=== PATIENT | male | born 1950 | race Caucasian/White ===

== ENCOUNTER 2023-03-29 09:47 | Outpatient (OUT) | payer MEDICARE, SELFPAY ==
--- NOTE | 2023-03-29 09:58 | ECG_ITS ---
[facility] Test Date: 2023-03-29 Pat Name: LALY HENSLEY Department: Room: - Gender: Male It Project Coordinator: : 1950 Requested By: [id number] Order Number: [id number] Reading MD: JANA MENSAH Measurements Intervals [place] Rate: 55 P: 24 NH: 245 QRS: 99 QRSD: 153 T: 20 QT: 419 QTc: 402 Interpretive Statements SINUS BRADYCARDIA WITH FIRST DEGREE AV BLOCK RIGHT BUNDLE BRANCH BLOCK [120+ ms QRS DURATION, UPRIGHT V1, 40+ ms S IN I/aVL/V4/V5/V6] No previous ECG available for comparison Electronically Signed On 03-30-2023 6:50:08 EDT by JANA MENSAH
--- NOTE | 2023-03-29 09:58 | XR_ITS ---
The [address] [address] Patient Name: LALY HENSLEY MRN: [id number] date: 1950 Sex: M Assigned Patient Location: [facility] Current Patient Location: [facility] Accession/Order Number: [id number] Exam Date: 03/29/2023 11:00 Report Date: 03/29/2023 11:27 At the request of: BJ YADAV Procedure: XR chest 2V EXAM: XR chest 2V HISTORY: Preop exam COMPARISON: None. TECHNIQUE: PA and lateral views of the chest. FINDINGS: The cardiomediastinal silhouette is normal. No focal consolidation is identified. There is no pneumothorax. No pleural effusion is noted. The osseous structures are intact. XR/XR chest 2V IMPRESSION: No acute cardiopulmonary process. Electronically authenticated by: OTF RUBIN Date: 03/29/2023 11:27
[2023-03-29 10:48] LABS: Basophils Absolute Auto 0.1 10^3/uL (0.0-0.1); Basophils Percent Auto 0.8 % (0.2-2.0); Eosinophils Absolute Auto 0.4 10^3/uL (0.0-0.7); Eosinophils Percent Auto 5.4 % (0.9-7.0); Hematocrit 45.4 % (42.0-54.0); Hemoglobin 15.2 g/dL (14.0-18.0); Immature Granulocytes Abs Auto 0.02 10^3/uL (0.00-0.03); Immature Granulocytes Pct Auto 0.3 % (0.0-0.5); Lymphocytes Absolute Auto 1.9 10^3/uL (1.2-3.8); Lymphocytes Percent Auto 24.1 % (20.5-60.0); Mean Corpuscular HGB Conc 33.5 g/dL (29.9-35.2); Mean Corpuscular Hemoglobin 29.7 pg (25.9-34.0); Mean Corpuscular Volume 88.8 fL (80.0-94.0); Mean Platelet Volume 9.8 fL (9.5-13.5); Monocytes Absolute Auto 0.5 10^3/uL (0.3-0.8); Monocytes Percent Auto 6.5 % (1.7-12.0); Neutrophils Absolute Auto 4.9 10^3/uL (1.4-6.5); Neutrophils Percent Auto 62.9 % (43.0-75.0); Platelet Count 225 10^3/uL (150-450); Red Blood Count 5.11 10^6/uL (4.70-6.10); Red Cell Distribution Width 12.9 % (11.0-15.0); White Blood Count 7.8 10^3/uL (4.0-11.0)
[2023-03-29 10:57] LABS: Anion Gap 10.9; BUN Creatinine Ratio 14.9; Calcium 9.6 mg/dL (8.5-10.1); Carbon Dioxide 27.5 mmol/L (21.0-32.0); Chloride 103 mmol/L (98-107); Estimated GFR (African America >60 (>=60); Estimated GFR (Non-African Ame >60 (>=60); Glucose 207 mg/dL (74-106); Potassium 4.4 mmol/L (3.5-5.1); Sodium 137 mmol/L (136-145)
[2023-03-29 11:08] LABS: INR 1.04; Partial Thromboplastin Time 27.3 sec (22.3-36.2)
== END 2023-03-29 09:48 | disposition home or self-care (01) ==
LOC: PST 09:51
PROVIDERS: PCP Family Medicine; Visit Provider Urology
DX: Z01.810 Encounter for preprocedural cardiovascular examination (principal); Z01.812 Encounter for preprocedural laboratory examination; R97.20 Elevated prostate specific antigen [PSA]; I25.10 Atherosclerotic heart disease of native coronary artery without angina pectoris; E11.9 Type 2 diabetes mellitus without complications; I10 Essential (primary) hypertension
CPT/HCPCS: 36415; 71046; 80048; 85025; 85610; 85730; 93005; G0463

== ENCOUNTER 2023-04-07 11:49 | Day surgery (SDC) | payer MEDICARE, SELFPAY ==
[2023-03-29 10:37] VITALS: BP 132/71; PULSE 64; RESP 18; TEMP 36.2; O2SAT 96; BMI 27.5
--- NOTE | 2023-03-29 10:50 | P.GSHP_ITS ---
History of Present Illness History of Present Illness Chief complaint: SURGERY Narrative: Patient presents for preadmission testing accompanied by his . The patient states he had an episode of urinary retention and had a Schilling catheter placed for approximately one week. The catheter has since been removed, and he started on Flomax which has helped tremendously. He still complains of nocturia. He denies dysuria, hematuria, abdominal pain, fever, or any other complaints. Review of Systems ROS Narrative REVIEW OF SYSTEMS: Negative except as stated in HPI, ten or more systems reviewed. Constitutional: No fever , chills, weakness ENT: No sore throat or epistaxis Cardiovascular: No edema, chest pain, palpitations, or activity intolerance Respiratory: No shortness of breath, cough, or wheezing Musculoskeletal: No joint pain or swelling Gastrointestinal: No abdominal pain, constipation, diarrhea, or vomiting Genitourinary: No dysuria or hematuria Neurological: No numbness, tingling, weakness, or headache Psychiatric: No mood changes PFSH PFSH Medical History (Updated 03/29/23 @ 10:20 by Maggie Hernandez NP) Chronic cough ?R05.3 - Chronic cough (ICD-10) Coronary artery disease ?I25.10 - Atherosclerotic heart disease of [place] coronary artery without angina pectoris (ICD-10) COVID-19 ?U07.1 - COVID-19 (ICD-10) Diabetes ?E11.9 - Type 2 diabetes mellitus without complications (ICD-10) Elevated PSA ?R97.20 - Elevated prostate specific antigen [PSA] (ICD-10) High cholesterol ?E78.00 - Pure hypercholesterolemia, unspecified (ICD-10) Hypertension ?I10 - Essential (primary) hypertension (ICD-10) Kidney stones ?N20.0 - Calculus of kidney (ICD-10) Neuropathy ?G62.9 - Polyneuropathy, unspecified (ICD-10) Surgical History (Updated 03/29/23 @ 10:19 by Maggie Hernandez NP) History of cholecystectomy ?Z90.49 - Acquired absence of other specified parts of digestive tract (ICD- 10) History of heart artery stent ?Z95.5 - Presence of coronary angioplasty implant and graft (ICD-10) Family History (Updated 03/29/23 @ 10:19 by Maggie Hernandez NP) Other Family history of brain cancer Family history of heart disease Family history of hypertension Social History (Updated 03/29/23 @ 10:12 by Maggie Hernandez NP) Within the past year, how often did you have a drink containing alcohol: never Score interpretation: A score less than 4 is consistent with normal alcohol co nsumption. Smoking status: Former smoker Highest level of school completed/degree received: high school graduate Meds Home Medications and Allergies Home Medications Medication Instructions Recorded Confirmed Type aspirin 81 mg tablet,delayed 81 mg PO DAILY 03/29/23 03/29/23 History release (Adult Aspirin Regimen) atorvastatin 80 mg tablet 80 mg PO DAILY 03/29/23 03/29/23 History fluticasone fur. 100 mcg-umeclid 1 inh inhalation DAILY 03/29/23 03/29/23 History 62.5 mcg-vilant 25 mcg inhalat.powder (Trelegy Ellipta) gabapentin 100 mg capsule 100 mg PO BID 03/29/23 03/29/23 History losartan 100 mg tablet 50 mg PO QDAY 03/29/23 03/29/23 History metformin 500 mg tablet 500 mg PO BID 03/29/23 03/29/23 History semaglutide 0.25 mg or 0.5 mg (2 0.25 mg subcut QWEEK 03/29/23 03/29/23 History mg/3 mL) subcutaneous pen injector (Ozempic) tadalafil 5 mg tablet 5 mg PO DAILY 03/29/23 03/29/23 History tamsulosin 0.4 mg capsule 0.4 mg PO DAILY 03/29/23 03/29/23 History Allergies Allergy/AdvReac Type Severity Reaction Status Date / Time Iodinated Contrast Media Allergy Unknown Verified 03/29/23 10:09 morphine Allergy respiratory Verified 03/29/23 10:09 depression Exam Narrative Exam Narrative: Constitutional: Awake, alert, comfortable, well-appearing, nontoxic, interactive, vital signs as charted Head: Normocephalic, atraumatic Neck: Supple, normal appearance, normal range of motion, no meningeal signs, no lymphadenopathy Respiratory: No respiratory distress, breath sounds clear Cardiovascular: Regular rate and rhythm, strong and regular heart tones Abdomen: Nontender, normal bowel sounds, soft, no CVA tenderness Musculoskeletal: Normal gait, no swelling or edema Skin: No rashes or induration, no lesions, only visible skin inspected Neuro: No neurological deficits, normal sensation Psychiatric: Oriented ?3, normal affect Constitutional Vital Signs, click to edit/add: Last Vital Signs Temp 97.2 F L 03/29/23 10:37 Pulse 64 03/29/23 10:37 Resp 18 03/29/23 10:37 BP 132/71 03/29/23 10:37 Pulse Ox 96 03/29/23 10:37 O2 Del Method Room Air 03/29/23 10:37 Assessment and Plan Assessment and Plan (1) Elevated PSA: Plan MRI fusion transperineal prostate biopsy scheduled with Dr. Alexander 04/07/2023.
[2023-04-07 11:53] VITALS: BP 131/68; PULSE 60; RESP 16; TEMP 36.1; O2SAT 98; BMI 27.0
[2023-04-07] MEDS: LACTATED RINGER'S SOLUTION 1,000 ML 50 ML IV ×2 (12:25→14:44)
[2023-04-07 12:30] LABS: Glucometer 181 mg/dL (74-106)
[2023-04-07] MEDS: CEFAZOLIN SODIUM/DEXTROSE,ISO 2 GM/50 ML PIGGYBACK IV (13:28)
--- NOTE | 2023-04-07 13:34 | PM.URSON ---
Urology Surgery Operative Note Operative Note Procedure Date: 04/07/23 Time Out Performed: yes Pre-op Diagnosis: 1. Elevated PSA 2. Abnormal MRI Post-op Diagnosis: same as pre-op Procedures performed: 1. MRI fusion prostate biopsy, transperineal approach 2. Ultrasound for needle prostate biopsy, transperineal approach 3. Transrectal ultrasound of prostate and seminal vesicles 4. Nerve block of prostate Anesthesia: MAC (Marlon Pathak CRNA) Primary Surgeon: Cynthia Alexander Complications: none Estimated blood loss (mL): 1 Findings: Scattered prostate calcifications in peripheral/transition zone. Small hypoechoic lesion right mid PZ. SV wnl. KADE benign- right lateral ridge but not firm, mild-moderately enlarged. Uneventful biopsy per below. Specimens: 1. Right posterior medial (2 cores) 2. Right posterior lateral (2 cores) 3. Right base (2 cores) 4. Right anterior lateral (2 cores) 5. Right anterior medial (2 cores) 6. Left anterior medial (2 cores) 7. Left anterior lateral (2 cores) 8. Left base (2 cores) 9. Left posterior lateral (2 cores) 10. Left posterior medial (2 cores) 11. SAVANAH 1- Right peripheral zone, mid gland (4 cores) Indications for Procedures: 72 year old male with history of elevated PSA 5.3, 28% free on 09/01/22, PSA density 0.06. MP-MRI prostate 01/19/23 showed PIRADS 4 lesion at right peripheral zone, posterior mid gland. Prostate volume 82 ml. Select MDx 56% chance of finding prostate cancer, 28% chance detecting clinically significant cancer. After discussion of risks/benefits of management options and biopsy approaches, he elected to proceed with MRI fusion transperineal prostate biopsy. Risks were discussed to include but not limited to bleeding, pain, infection, damage to surrounding structures, hematuria, difficulty urinating, ecchymosis, swelling, injury from positioning, and need for additional procedures. Detailed description of Procedure: After informed consent was obtained, the patient was brought to the operating suite and transferred onto the operating table in supine position. Sequential compression devices were placed on bilateral lower extremities. He received the appropriate dose of preoperative IV antibiotics (Cefazolin 2 g) and MAC was induced. He was positioned in the dorsal lithotomy position with scrotum secured out of the perineum with tape, and the appropriate pressure points padded, prepped and draped in the usual fashion for this procedure. An operative timeout was performed confirming the patient's identity, procedure and safety checks. A digital rectal exam was performed noting findings as above. The [employer] UroNav MRI fusion biopsy system was set up over the patient's pelvis for transperineal approach of prostate biopsy. A well lubricated biplane transrectal ultrasound probe was inserted into the rectum and the prostate was aligned. The gland was visualized fully in axial and sagittal views to allow for identification of anatomy and location of the urethra as noted in findings. The Precision Point device was placed on the ultrasound probe for transperineal approach. The skin followed by periprostatic local anesthetic lidocaine 1% was delivered. After rendering of real-time images with the preoperative MRI prostate, the UroNav fusion biopsy system was used to target the region of interest. Four core needle biopsies were obtained from the region of interest. Thereafter two biopsies were obtained in a systematic fashion from 10 regions of the prostate including the medial and lateral aspects of the anterior and posterior prostate, as well as base of the right and left lobes. The ultrasound probe was removed and the perineum was cleaned and dressed with antibiotic ointment, fluffs and scrotal support. Adequate hemostasis was achieved with pressure. The patient was awakened from anesthesia and sent to PACU in stable condition. Plan: Void prior to discharge home. Follow up in 1-2 weeks for pathology review. Other Provider present: No Post Operative care instructions: see discharge instructions
[2023-04-07] MEDS: BACITRACIN OINTMENT 28.4 GM TUBE 1 APPLIC TOPICAL (13:59)
[2023-04-07] MEDS: LIDOCAINE HCL 1% 100 MG/10 ML MDV INJ (13:59)
[2023-04-07 14:06] VITALS: BP 115/68; PULSE 61; RESP 16; TEMP 36.3; O2SAT 92
[2023-04-07 14:21] VITALS: BP 109/64; PULSE 55; RESP 16; O2SAT 93
[2023-04-07 14:36] VITALS: BP 123/68; PULSE 47; RESP 16; O2SAT 95
[2023-04-07 15:06] VITALS: BP 135/65; PULSE 45; RESP 16; O2SAT 93
[2023-04-07 15:36] VITALS: BP 142/65; PULSE 51; RESP 16; O2SAT 98
--- NOTE | 2023-04-07 15:45 | PC.NURSE ---
1535 pt voids without difficulty,ambulates without difficulty
== END 2023-04-07 15:46 | disposition home or self-care (01) ==
PROVIDERS: PCP Family Medicine; Visit Provider Urology
PROC: (CPT 55700; principal; 2023-04-07 13:00)
DX: C61 Malignant neoplasm of prostate (principal); R97.20 Elevated prostate specific antigen [PSA]; I10 Essential (primary) hypertension; I25.10 Atherosclerotic heart disease of native coronary artery without angina pectoris; Z86.16 Personal history of COVID-19; E78.00 Pure hypercholesterolemia, unspecified; Z87.442 Personal history of urinary calculi; E11.42 Type 2 diabetes mellitus with diabetic polyneuropathy; Z90.49 Acquired absence of other specified parts of digestive tract; Z95.5 Presence of coronary angioplasty implant and graft; Z87.891 Personal history of nicotine dependence; Z79.82 Long term (current) use of aspirin; Z79.84 Long term (current) use of oral hypoglycemic drugs; E66.9 Obesity, unspecified; R35.1 Nocturia; Z68.31 Body mass index [BMI] 31.0-31.9, adult; N40.1 Benign prostatic hyperplasia with lower urinary tract symptoms; R33.9 Retention of urine, unspecified
CPT/HCPCS: 55700; 36415; 82948; 88305; 88344; J2704